=== PATIENT | female | born 1935 | race Caucasian/White ===

== ENCOUNTER 2017-02-14 21:59 | Emergency (ER) | payer MEDICARE | END 2017-02-14 22:55 | disposition home or self-care (01) | LOC: ER 21:59 | DX: S86.911A Strain of unspecified muscle(s) and tendon(s) at lower leg level, right leg, initial encounter (principal); S70.01XA Contusion of right hip, initial encounter; I10 Essential (primary) hypertension; E11.9 Type 2 diabetes mellitus without complications; W19.XXXA Unspecified fall, initial encounter | CPT/HCPCS: 73502-RT; 73560-RT; 99284 ==